=== PATIENT | female | born 1930 | race Caucasian/White ===

== ENCOUNTER 2019-02-06 19:48 | Inpatient (IN) | payer MEDICARE, MEDICAID ==
[~2019-02-06] VITALS: Ht 165.1 cm; Wt 65.3 kg
[2019-02-06] MEDS ORDERED: ASPIRIN 81MG TABLET PO ONE (20:30)
[2019-02-06 20:33] LABS: BASOPHILS % 1.1 % (0.0-2.0); EOSINOPHILS % 3.5 % (0.0-5.0); HEMATOCRIT. 35.1 % (36.0-48.0); HEMOGLOBIN. 11.5 g/dL (12.0-16.0); LYMPHOCYTES % 37.9 % (20.0-50.0); MEAN PLATELET VOLUME 10.6 fl (7.4-10.4); MONOCYTES % 8.1 % (2.0-8.0); NEUTROPHILS % 49.4 % (40.0-76.0); PLATELET 163 x1000/uL (130-400); RED BLOOD CELL COUNT 3.99 mill/uL (4.2-5.4); RED CELL DISTRIBUTION WIDTH 14.1 % (11.6-14.6)
[2019-02-06 20:35] LABS: CHLORIDE 110 mEq/L (98-107)
[2019-02-06 23:00] VITALS: BP 147/53
[2019-02-07] VITALS: BP 147/53
[2019-02-07] MEDS ORDERED: MAGNESIUM/ALUMINUM HYDROXIDE/SIMETHICONE 30ML UDC PO PRN (00:15)
[2019-02-07] MEDS ORDERED: DOCUSATE SODIUM 100MG CAPSULE PO PRN (00:15)
[2019-02-07] MEDS ORDERED: CLONIDINE 0.1MG TABLET PO PRN (00:15)
[2019-02-07] MEDS ORDERED: ACETAMINOPHEN 325MG TABLET PO PRN (00:15)
[2019-02-07] MEDS ORDERED: GUAIFENESIN 200MG/10ML SUGAR FREE UDC PO PRN (00:15)
[2019-02-07] MEDS ORDERED: ONDANSETRON HCL 4MG/2ML INJ IV PRN (00:15)
[2019-02-07] MEDS ORDERED: ENOXAPARIN 40MG/0.4ML SYR SUBCUT SCH (00:15)
[2019-02-07 04:00] VITALS: BP 148/46
[2019-02-07] MEDS: SODIUM CHLORIDE 0.9% 1,000 ML IV SCH ×2 (06:05→13:01)
[2019-02-07] MEDS ORDERED: DEXTROSE 50% WATER 50ML SYRINGE IV PRN (07:45)
[2019-02-07 08:00] VITALS: BP 160/66
[2019-02-07] MEDS: BLOOD SUGAR DIAGNOSTIC STRIP TEST SCH ×4 (08:31→21:45)
[2019-02-07] MEDS: AMLODIPINE 10MG TABLET PO SCH (08:40)
[2019-02-07] MEDS: ENOXAPARIN 30MG/0.3ML SYR SUBCUT SCH (08:42)
[2019-02-07 08:45] LABS: CREATINE KINASE 45 IU/L (26-192)
[2019-02-07 08:46] LABS: CREATINE KINASE MB FRACTION < 1.0 ng/mL (0.5-3.6)
[2019-02-07] MEDS: INSULIN LISPRO 100 UNITS/ML SUBCUT SCH ×4 (08:58→21:48)
[2019-02-07 12:00] VITALS: BP 145/66
[2019-02-07 15:28] LABS: CREATINE KINASE 40 IU/L (26-192)
[2019-02-07 15:30] LABS: CREATINE KINASE MB FRACTION < 1.0 ng/mL (0.5-3.6)
[2019-02-07 16:00] VITALS: BP_SYST 120; BP_SYST 135; BP_SYST 136; BP_DIAS 40; BP_DIAS 47; BP_DIAS 48
[2019-02-07 20:00] VITALS: BP_SYST 138; BP_SYST 144; BP_SYST 81; BP_DIAS 42; BP_DIAS 51; BP_DIAS 54
[2019-02-08] VITALS: BP 132/88
[2019-02-08 04:00] VITALS: BP 139/43
[2019-02-08 05:51] LABS: BASOPHILS % 1.2 % (0.0-2.0); EOSINOPHILS % 4.5 % (0.0-5.0); HEMATOCRIT. 33.7 % (36.0-48.0); HEMOGLOBIN. 11.3 g/dL (12.0-16.0); LYMPHOCYTES % 43.4 % (20.0-50.0); MEAN CORPUSCULAR HEMOGLOBIN 29.5 pg (28.0-32.0); MEAN CORPUSCULAR VOLUME 87.9 fL (81.0-99.0); MEAN PLATELET VOLUME 10.9 fl (7.4-10.4); NEUTROPHILS % 43.9 % (40.0-76.0); PLATELET 144 x1000/uL (130-400); RED BLOOD CELL COUNT 3.83 mill/uL (4.2-5.4); RED CELL DISTRIBUTION WIDTH 14.4 % (11.6-14.6)
[2019-02-08 06:10] LABS: CHLORIDE 108 mEq/L (98-107)
[2019-02-08 06:25] LABS: LDL CHOLESTEROL 83 mg/dL (5-100)
[2019-02-08 06:26] LABS: HDL CHOLESTEROL 33 mg/dL (40-59)
[2019-02-08 06:27] LABS: T4 FREE 1.07 ng/dL (0.76-1.46)
[2019-02-08] MEDS: BLOOD SUGAR DIAGNOSTIC STRIP TEST SCH ×4 (06:59→20:08)
[2019-02-08] MEDS: INSULIN LISPRO 100 UNITS/ML SUBCUT SCH ×4 (07:03→20:17)
[2019-02-08 08:00] VITALS: BP 140/54
[2019-02-08] MEDS: ENOXAPARIN 30MG/0.3ML SYR SUBCUT SCH (08:26)
[2019-02-08] MEDS: AMLODIPINE 10MG TABLET PO SCH (08:27)
[2019-02-08] MEDS ORDERED: SODIUM CHLORIDE 0.9% 1,000 ML IV SCH (09:15)
[2019-02-08] MEDS: ASPIRIN 81MG TABLET PO SCH (11:09)
[2019-02-08 12:00] VITALS: BP_SYST 130; BP_SYST 157; BP_SYST 96; BP_DIAS 43; BP_DIAS 53; BP_DIAS 54
[2019-02-08 15:35] LABS: CREATINE KINASE 39 IU/L (26-192)
[2019-02-08 15:37] LABS: CREATINE KINASE MB FRACTION < 1.0 ng/mL (0.5-3.6)
[2019-02-08 16:00] VITALS: BP 139/59
[2019-02-08] MEDS: SODIUM CHLORIDE 0.9% 1,000 ML IV SCH (16:13)
[2019-02-08 20:00] VITALS: BP 145/56
[2019-02-08 23:33] LABS: CREATINE KINASE 51 IU/L (26-192)
[2019-02-08 23:34] LABS: CREATINE KINASE MB FRACTION < 1.0 ng/mL (0.5-3.6)
[2019-02-09] VITALS: BP_SYST 104; BP_SYST 123; BP_SYST 146; BP_DIAS 44; BP_DIAS 50; BP_DIAS 55
[2019-02-09 04:00] VITALS: BP 152/54
[2019-02-09] MEDS: SODIUM CHLORIDE 0.9% 1,000 ML IV SCH (05:29)
[2019-02-09] MEDS: BLOOD SUGAR DIAGNOSTIC STRIP TEST SCH (06:21)
[2019-02-09] MEDS: INSULIN LISPRO 100 UNITS/ML SUBCUT SCH (06:25)
[2019-02-09 06:38] LABS: CREATINE KINASE 42 IU/L (26-192)
[2019-02-09 06:39] LABS: CREATINE KINASE MB FRACTION < 1.0 ng/mL (0.5-3.6)
[2019-02-09 08:00] VITALS: BP 134/54
[2019-02-09] MEDS: ASPIRIN 81MG TABLET PO SCH (09:04)
[2019-02-09] MEDS: AMLODIPINE 10MG TABLET PO SCH (09:04)
[2019-02-09] MEDS: ENOXAPARIN 30MG/0.3ML SYR SUBCUT SCH (09:05)
[2019-02-09] MEDS ORDERED: INSU100I28 SQ (10:52)
[2019-02-09] MEDS ORDERED: LOSA1TAB37 PO (10:52)
[2019-02-09] MEDS ORDERED: SIMV20TA6 PO (10:52)
[2019-02-09] MEDS ORDERED: METO-396 PO (10:52)
[2019-02-09] MEDS ORDERED: INSU100I13 SQ ×2 (10:52)
[2019-02-09] MEDS ORDERED: OMEP20CA10 PO (10:52)
[2019-02-09 11:41] VITALS: BP 145/70
== END 2019-02-09 12:37 | disposition home or self-care (01) | DRG 48 ==
LOC: ER 19:48 → ENRESERV 22:11 → 5WST 23:54
PROVIDERS: ADMIT Hospitalist; ATTEND Hospitalist
DX: G90.8 Other disorders of autonomic nervous system (principal); N17.9 Acute kidney failure, unspecified; E87.8 Other disorders of electrolyte and fluid balance, not elsewhere classified; E86.0 Dehydration; E11.9 Type 2 diabetes mellitus without complications; I10 Essential (primary) hypertension; E78.00 Pure hypercholesterolemia, unspecified; R00.1 Bradycardia, unspecified; R94.31 Abnormal electrocardiogram [ECG] [EKG]; T44.7X5A Adverse effect of beta-adrenoreceptor antagonists, initial encounter; E78.5 Hyperlipidemia, unspecified; Y92.89 Other specified places as the place of occurrence of the external cause
CPT/HCPCS: 36415; 71045; 78582; 80061; 82550; 82553; 82962; 83036; 83880; 84439; 84443; 84484; 85379; 93005; 93306; 93970; 97162; 99285; A9558; J1650; J1815; J7030